=== PATIENT | female | born 1950 | race Caucasian/White ===

== ENCOUNTER 2016-12-16 10:20 | Day surgery (SDC) | payer OTHER ==
[2016-12-16 08:14] VITALS: BMI 29.9
[2016-12-16] MEDS ORDERED: LIDOCAINE HCL/PF 1% SDV 5ML VIAL ONE (11:09)
[2016-12-16] MEDS ORDERED: PROPOFOL 20 ML ONE ×3 (11:09)
[2016-12-16 12:01] VITALS: TEMP 97.5
[2016-12-16 12:54] VITALS: BP 110/58; PULSE 64
--- NOTE | 2016-12-19 13:54 | PATH ---
Surgical Pathology Report Patient Name: CARRIE PETERSEN [facility]. Rec. #: [id number] /Age/Gender: 1950 (Age: 66) / F Account: [id number] Location: [facility]-ENDOSCOPY Taken: 12/16/2016 Received: 12/16/2016 Reported: 12/19/2016 Physicians: Cy Medina M.D. Specimen(s) Received POLYPS SIGMOID Clinical History Malignant tumor of colon, internal hemorrhoids, diverticulosis Normal anastomosis, sigmoid polyps, grade 2 hemorrhoids Final Diagnosis COLON, SIGMOID, POLYPS, POLYPECTOMY: HYPERPLASTIC POLYPS. Electronically Signed Cameron Martínez M.D. Gross Description Received in formalin, labeled "sigmoid colon" is a stevens, irregular portion of soft tissue measuring 0.3 cm in greatest dimension. The specimen is submitted in toto in one cassette. /12/16/201612/16/2016
== END 2016-12-16 13:01 | disposition home or self-care (01) ==
LOC: JASU-ENDO 10:20
PROVIDERS: ATTEND Internal Medicine Gastroenterology
PROC: 0DBN8ZX Excision of Sigmoid Colon, Via Natural or Artificial Opening Endoscopic, Diagnostic (ICD-10-PCS; principal; 2016-12-16 11:30)
DX: Z12.11 Encounter for screening for malignant neoplasm of colon (principal); Z85.038 Personal history of other malignant neoplasm of large intestine; D12.5 Benign neoplasm of sigmoid colon; K64.8 Other hemorrhoids; Z98.0 Intestinal bypass and anastomosis status
CPT/HCPCS: 88305-TC

== ENCOUNTER 2017-08-14 08:00 | Day surgery (SDC) | payer OTHER ==
[2017-08-14 08:53] VITALS: BMI 28.3
[2017-08-14] MEDS ORDERED: PROPOFOL 20 ML ONE (08:55)
[2017-08-14] MEDS ORDERED: LIDOCAINE HCL 2% JELLY 10 ML CARTRIDGE ONE (08:56)
[2017-08-14 10:09] VITALS: TEMP 98.3
[2017-08-14 14:27] VITALS: BP 134/63; PULSE 63
--- NOTE | 2017-08-15 14:26 | PATH ---
Surgical Pathology Report Patient Name: CARRIE PETERSEN [facility]. Rec. #: [id number] /Age/Gender: 1950 (Age: 67) / F Account: [id number] Location: [facility]-ENDOSCOPY Taken: 08/14/2017 Received: 08/14/2017 Reported: 08/15/2017 Physicians: Cy Medina M.D. Specimen(s) Received A: BX POLYP AT CARDIA B: BX GASTRIC BODY POLYP C: BX GE JUNCTION Clinical History Estrada syndrome Polyp, hiatal hernia, nodule at cardia Final Diagnosis A. CARDIA, POLYP, BIOPSY: GASTRIC MUCOSA WITH FEATURES OF FUNDIC GLAND POLYP, SURFACE HYPERPLASTIC CHANGE AND MILD CHRONIC GASTRITIS. NEGATIVE FOR DYSPLASIA. IMMUNOSTAIN FOR H. PYLORI IS NEGATIVE FOR ORGANISMS. B. STOMACH, BODY, POLYP, BIOPSY: GASTRIC OXYNTIC MUCOSA WITH FUNDIC GLAND POLYP AND MODERATE CHRONIC GASTRITIS. IMMUNOSTAIN FOR H. PYLORI IS NEGATIVE FOR ORGANISMS. C. GE JUNCTION/CARDIA NODULE, BIOPSY: SQUAMOCOLUMNAR JUNCTIONAL MUCOSA WITH HYPERPLASTIC CHANGE AND FOCAL FEATURES OF FUNDIC GLAND POLYP. NO INTESTINAL METAPLASIA (LANE'S ESOPHAGUS) OR DYSPLASIA IDENTIFIED. Electronically Signed Cameron Martínez M.D. Gross Description A. Received in formalin, labeled "biopsy polyp cardia" are two fragments of stevens-pink tissue 0.2 and 0.3 cm in greatest dimension. The specimens are submitted in toto in one cassette. B. Received in formalin, labeled "gastric body polyp" are two fragments of stevens-pink tissue 0.3 cm in greatest dimension. The specimens are submitted in toto in one cassette. C. Received in formalin, labeled "GE junction/cardia nodule" are two fragments of stevens-pink tissue 0.2 cm in greatest dimension. The specimens are submitted in toto in one cassette. AF/08/14/2017 final/08/14/2017
== END 2017-08-14 11:00 | disposition home or self-care (01) ==
LOC: JASU-ENDO 08:00
PROVIDERS: ATTEND Internal Medicine Gastroenterology
PROC: 0DB68ZX Excision of Stomach, Via Natural or Artificial Opening Endoscopic, Diagnostic (ICD-10-PCS; principal; 2017-08-14 09:00)
DX: Z15.09 Genetic susceptibility to other malignant neoplasm (principal); K31.7 Polyp of stomach and duodenum; K44.9 Diaphragmatic hernia without obstruction or gangrene
CPT/HCPCS: 88305-TC; 88342-TC